=== PATIENT | male | born 1945 | race Caucasian/White ===

== ENCOUNTER 2016-09-12 13:52 | Emergency (ER) | payer OTHER ==
[~2016-09-12] VITALS: Ht 177.8 cm; Wt 128.0 kg
[2016-09-12 14:02] VITALS: TEMP 36.7; Ht 177.8 cm; Wt 128.0 kg
--- NOTE | 2016-09-12 14:38 | EMERGENCY ROOM VISIT NOTE ---
History First contact with patient: 14:05 Chief Complaint: ANXIETY Stated Complaint: HEADACHE/ANXIOUS History of Present Illness The patient is a 71 year old male who presents to the Emergency Room with complaints of anxiety causing a panic attack started this morning prior to arrival. The patient has a long-standing history of anxiety. He has been taking Xanax for several years. He is very concerned that he is now addicted to it. He reports taking 1 tablet 0.25 mg at least 3 times daily for the last several years. The patient is concerned that he is going to run out of his prescription. He has seen his primary care physician for this problem. He was also recently started on Zoloft, but has not seen any significant improvement. He does complain of insomnia and says that one 0.25 mg tablet is not enough to help him sleep. He has been taking 2 at a time at night. He does report some increased stressors as of lately including buying a house. He did experience some chest pressure that started at approximately noon today. It has dissipated. He denies any heart palpitations, dizziness or shortness of breath. He denies no known history of coronary disease. He denies feeling shaky or tremors, but he has not gone without his medication in quite some time. Review of Systems 10 system review performed and negative unless noted in HPI or below Past Medical/Surgical History Hypertension, anxiety Family History Hypertension Social History Smoking Status: Never Smoker Smokeless Tobacco Use: No Alcohol Use: none Marital Status: Housing Status: lives with significant other Occupation Status: retired Current/Historical Medications Scheduled PRN Alprazolam (Xanax), 1 TAB PO Q6H PRN for Anxiety/Agitation Physical Exam Vital Signs Date Time Temp Pulse Resp B/P (MAP) Pulse Ox O2 Delivery O2 Flow Rate FiO2 09/12/16 17:37 68 142/71 94 09/12/16 16:00 68 132/79 09/12/16 14:02 36.7 96 18 152/104 96 Room Air Physical Exam VITALS: Vitals are noted on the nurse's note and reviewed by myself. Vital signs stable. GENERAL: 71-year-old male, in no acute distress, nondiaphoretic, well-developed well-nourished. SKIN: The skin was without rashes, erythema, edema, or bruising. HEAD: Normocephalic atraumatic. MOUTH: Mucous membranes moist. NECK: Supple without nuchal rigidity. No JVD. HEART: Regular rate and rhythm without murmurs gallops or rubs. LUNGS: Clear to auscultation bilaterally without wheezes, rales or rhonchi. No accessory muscle use. ABDOMEN: Positive bowel sounds x 4.Soft, nontender, without organomegaly. No guarding or rebound tenderness. MUSCULOSKELETAL: No muscle atrophy, erythema, or edema noted. Strength 5/5 throughout. NEURO: Patient was alert and oriented to person place and time. No tremor noted. Normal sensation to touch. No focal neurological deficits. Medical Decision & Procedures ER Provider Diagnostic Interpretation: Patient Name: NICKY BELTRAN Unit Number: [id number] Dictated: 09/12/161451 Transcribed: 09/12/161451 [facility] Printed Date/Time: [~ rep prt dt]/[~ rep prt tm] [~ rep ct labl] - [~ rep ct ivnm] [facility] [place] [address] Dictated: 09/12/161451 Transcribed: 09/12/161451 [facility] Printed Date/Time: [~ rep prt dt]/[~ rep prt tm] [~ rep ct labl] - [~ rep ct ivnm] Patient: NICKY BELTRAN Address1: [address] Rec: [id number] Address2: Acct ID: [id number] [facility] Zip: [place] [address] Date: 1945 Sex: M Room/Bed: Ref Phy: Justin Polanco D.O. SC: VIPUL Att Phy: Report #: [id number] Lisa Phy: Justin Polanco D.O. Test: CXR1P Admit Phy: Global Sales Director: PARESH Interpreting Phy: Umair Carr D.O. Diagnosis: HEADACHE/ANXIOUS Ordering Phy: Khadijah No PA-C Service Date: 09/12/16 Admit Date: 09/12/16 MNE: [id number] CONF: DICTATED BY: Umair Carr D.O.]] CC: Jonah Campa M.D. Sulman,Justin A., D.O. Khadijah No PA-C Endcc: [~ rep ct add3]] CHEST ONE VIEW PORTABLE HISTORY:71 yearsMalechest pressure COMPARISON: None available. TECHNIQUE: Portable upright AP view of the chest. FINDINGS: Cardiac silhouette is within normal limits. Hazy opacities within the medial portions of the apical upper lungs are noted suggesting areas of pleural-parenchymal scarring. No definite mass identified. No pneumothorax or pleural effusion. No overt pulmonary edema. There is mild right hemidiaphragmatic elevation. Degenerative changes are seen in the bilateral shoulders. IMPRESSION: Hazy opacities involving the medial portions of the apical upper lungs are noted without comparison available. These findings may reflect underlying pleural parenchymal scarring . The above report was generated using voice recognition software. It may contain grammatical, syntax or spelling errors. Electronically signed by: Roel Carr M.D. 09/12/2016 2:55 PM Dictated Date/Time: 09/12/2016 2:52 PM The status of this report is Signed. Draft = Not yet reviewed or approved by Radiologist. Signed = Reviewed and approved by Radiologist. <AttendingPhy></AttendingPhy> <FamilyPhy>Justin Polanco D.O.</FamilyPhy> < PrimaryPhy>Justin Polanco D.O.</PrimaryPhy> <UnitNumber>[id number]</UnitNumber > <VisitNumber>[id number]</VisitNumber> <PatientName>DEVINNICKY</ PatientName> <DateOfBirth>1945</DateOfBirth> <Location>[facility]</Location> < ServiceDate>09/12/16</ServiceDate> <MNE>ESINDI</MNE> <OrderingPhy>Khadijah No PA-C</OrderingPhy> <OrderingPhyMNE>f rep ord dr barroso</OrderingPhyMNE> < DictatingPhyMNE>f rep dict dr barroso</DictatingPhyMNE> <CCListMNE>f rep ct mne</ CCListMNE> <AdmittingPhyMNE>f pt admit dr barroso</AdmittingPhyMNE> <AttendingPhyMNE >f pt attend dr barroso</AttendingPhyMNE> <ConsultingPhyMNE>f pt consult dr barroso</ConsultingPhyMNE> <FamilyPhyMNE>f pt fam dr barroso</FamilyPhyMNE> <OtherPhyMNE>f pt other dr barroso</OtherPhyMNE> < PrimaryPhyMNE>f pt prim care dr barroso</PrimaryPhyMNE> <ReferringPhyMNE>f pt referring dr barroso</ReferringPhyMNE> Laboratory Results 09/12/16 14:40 Red Blood Count 5.00, Mean Corpuscular Volume 91.4, Mean Corpuscular Hemoglobin 32.2, Mean Corpuscular Hemoglobin Concent 35.2, Mean Platelet Volume 9.7, Neutrophils (%) (Auto) 70.0, Lymphocytes (%) (Auto) 19.2, Monocytes (%) (Auto) 9.2, Eosinophils (%) (Auto) 1.0, Basophils (%) (Auto) 0.3, Neutrophils # (Auto) 4.42, Lymphocytes # (Auto) 1.21, Monocytes # (Auto) 0.58, Eosinophils # (Auto) 0.06, Basophils # (Auto) 0.02 09/12/16 14:40 Test 09/12/16 14:00 09/12/16 14:40 Urine Color YELLOW Urine Appearance CLEAR (CLEAR) Urine pH 7.0 (4.5-7.5) Urine Specific [place] 1.011 (1.000-1.030) Urine Protein NEG (NEG) Urine Glucose (UA) NEG (NEG) Urine Ketones NEG (NEG) Urine Occult Blood NEG (NEG) Urine Nitrite NEG (NEG) Urine Bilirubin NEG (NEG) Urine Urobilinogen NEG (NEG) Urine Leukocyte Esterase NEG (NEG) White Blood Count 6.31 K/uL (4.8-10.8) Red Blood Count 5.00 M/uL (4.7-6.1) Hemoglobin 16.1 g/dL (14.0-18.0) Hematocrit 45.7 % (42-52) Mean Corpuscular Volume 91.4 fL (80-100) Mean Corpuscular Hemoglobin 32.2 pg (25-34) Mean Corpuscular Hemoglobin Concent 35.2 g/dl (32-36) Platelet Count 200 K/uL (130-400) Mean Platelet Volume 9.7 fL (7.4-10.4) Neutrophils (%) (Auto) 70.0 % Lymphocytes (%) (Auto) 19.2 % Monocytes (%) (Auto) 9.2 % Eosinophils (%) (Auto) 1.0 % Basophils (%) (Auto) 0.3 % Neutrophils # (Auto) 4.42 K/uL (1.4-6.5) Lymphocytes # (Auto) 1.21 K/uL (1.2-3.4) Monocytes # (Auto) 0.58 K/uL (0.11-0.59) Eosinophils # (Auto) 0.06 K/uL (0-0.5) Basophils # (Auto) 0.02 K/uL (0-0.2) RDW Standard Deviation 47.7 fL (36.4-46.3) RDW Coefficient of Variation 14.1 % (11.5-14.5) Immature Granulocyte % (Auto) 0.3 % Immature Granulocyte # (Auto) 0.02 K/uL (0.00-0.02) Prothrombin Time 28.1 SECONDS (9.0-12.0) Prothromb Time International Ratio 2.5 (0.9-1.1) Anion Gap 9.0 mmol/L (3-11) Est Creatinine Clear Calc Drug Dose 104.6 ml/min Estimated GFR () 100.6 Estimated GFR (Non- 86.8 BUN/Creatinine Ratio 15.6 (10-20) Calcium Level 9.3 mg/dl (8.5-10.1) Troponin I < 0.015 ng/ml (0-0.045) ECG Indication: chest pain Rate (beats per minute): 55 Rhythm: sinus bradycardia ED Course Patient was seen and examined Vital signs including blood pressure were reviewed. This was discussed with the patient. He admits to not taking his blood pressure medication regularly. medications list was verified with patient Labs were obtained, and a saline lock was established Imaging and an EKG were performed and reviewed Upon evaluation, the patient was resting comfortably. We discussed the results of his workup. He voiced understanding. The patient was given a follow-up appointment with his primary care physician on September 14. He was comfortable being discharged home. I reviewed discharge instructions the patient. They voiced understanding and had no further questions. Medical Decision Differential diagnosis: Anxiety, panic attack, acute coronary syndrome, pulmonary embolus, musculoskeletal pain,, withdrawal from benzodiazepines This patient is a pleasant 71-year-old male presents to the emergency department with complaints of a panic attack and anxiety. He is concerned that he is addicted to Xanax. He has been on the medication for several years. He seems to be taking anywhere from 0.5 mg to 2.5 mg daily throughout the day. He did not have any symptoms of withdrawal on exam besides an elevated blood pressure. The patient admits to not taking his blood pressure medication as prescribed. He was concerned about running out of his prescription of Xanax. I do not want the patient to go through withdrawal; therefore, the patient was given a prescription for Xanax. I stressed the importance of close follow-up with his primary care physician who will need to closely manage the patient as he slowly decreases his dose of Xanax daily. I did elect to perform a cardiac workup as he was complaining of chest pressure this morning. The pressure dissipated on its own. His EKG did not have any ST elevations or depressions. His troponin was negative. He did have some hazy opacities in the upper lung méndez. Given how this has been asymptomatic (no cough of fever), the patient is stable for follow-up in 2 days with his PCP. Impression Primary Impression: Acute anxiety Departure Information Prescriptions Alprazolam (Xanax) 0.5 Mg Tab 1 TAB PO Q6H Y for Anxiety/Agitation, #14 TAB Prov: Khadijah No PA-C 09/12/16 Patient Instructions My [facility]
--- NOTE | 2016-09-12 14:56 | DIAGNOSTIC IMAGING REPORT ---
CHEST ONE VIEW PORTABLE HISTORY:71 yearsMalechest pressure COMPARISON: None available. TECHNIQUE: Portable upright AP view of the chest. FINDINGS: Cardiac silhouette is within normal limits. Hazy opacities within the medial portions of the apical upper lungs are noted suggesting areas of pleural-parenchymal scarring. No definite mass identified. No pneumothorax or pleural effusion. No overt pulmonary edema. There is mild right hemidiaphragmatic elevation. Degenerative changes are seen in the bilateral shoulders. IMPRESSION: Hazy opacities involving the medial portions of the apical upper lungs are noted without comparison available. These findings may reflect underlying pleural parenchymal scarring . The above report was generated using voice recognition software. It may contain grammatical, syntax or spelling errors. Electronically signed by: Roel Carr M.D. 09/12/2016 2:55 PM Dictated Date/Time: 09/12/2016 2:52 PM
[2016-09-12 15:04] LABS: BASO % 0.3 %; BASO ABS # 0.02 K/uL (0-0.2); COMPLETE YES; HEMATOCRIT 45.7 % (42-52); IG% 0.3 %; LYMPH % 19.2 %; LYMPH ABS # 1.21 K/uL (1.2-3.4); MEAN CELL VOLUME 91.4 fL (80-100); MEAN CORPUSCULAR HEMOGLOBIN 32.2 pg (25-34); MEAN CORPUSCULAR HGB CONC 35.2 g/dl (32-36); MEAN PLATELET VOLUME 9.7 fL (7.4-10.4); MONO % 9.2 %; PLATELET COUNT 200 K/uL (130-400); WHITE BLOOD COUNT 6.31 K/uL (4.8-10.8)
[2016-09-12 15:20] LABS: INR 2.5 (0.9-1.1); PROTHROMBIN TIME (PATIENT) 28.1 SECONDS (9.0-12.0)
[2016-09-12 15:23] LABS: BLOOD UREA NITROGEN 14 mg/dl (7-18); BUN/CREATININE RATIO 15.6 (10-20); CALCIUM 9.3 mg/dl (8.5-10.1); CARBON DIOXIDE 26 mmol/L (21-32); CHLORIDE 106 mmol/L (98-107); CREATININE 0.87 mg/dl (0.60-1.40); GLUCOSE 93 mg/dl (70-99); POTASSIUM 3.7 mmol/L (3.5-5.1); SODIUM 141 mmol/L (136-145)
--- NOTE | 2016-09-12 15:55 | EMERGENCY ROOM VISIT NOTE ---
ED Visit Note First contact with patient: 14:05 Patient was seen by our PA/NUCLEAR PHYSICIAN. I was involved in the patient's care and did evaluate the patient myself. I was involved in the care throughout the ER stay. The patient presents with what sounds like anxiety. Cardiac workup is unrevealing. He is doing well. He is being discharged to follow with his doctors office and to use his anxiety meds as needed.
[2016-09-12] MEDS ORDERED: ALPR-411 PO (16:03)
[2016-09-12 16:35] LABS: URINE APPEARANCE CLEAR (CLEAR); URINE BILIRUBIN NEG (NEG); URINE COLOR YELLOW; URINE NITRITE NEG (NEG); URINE SPECIFIC GRAVITY 1.011 (1.000-1.030); UROBILINOGEN NEG (NEG)
[2016-09-12 16:38] LABS: MANUAL MICROSCOPIC REQUIRED? NO; REVIEW REQ? NO
[2016-09-12 17:37] VITALS: BP 142/71; PULSE 68; O2SAT 94
== END 2016-09-12 17:15 | disposition home or self-care (01) ==
LOC: C.EDC 13:57
DX: F41.9 Anxiety disorder, unspecified (principal); I10 Essential (primary) hypertension; R91.8 Other nonspecific abnormal finding of lung field; Z82.49 Family history of ischemic heart disease and other diseases of the circulatory system

== ENCOUNTER 2016-11-06 14:11 | Emergency (ER) | payer OTHER ==
[~2016-11-06] VITALS: Ht 177.8 cm; Wt 126.7 kg
[~2016-11-06 14:11] MED LIST: ALPR-411 PO
[2016-11-06 14:20] VITALS: TEMP 36.5; Ht 177.8 cm; Wt 126.7 kg
--- NOTE | 2016-11-06 15:03 | EMERGENCY ROOM VISIT NOTE ---
History Report prepared by Elisabet: Harrison Woo Under the Supervision of: Dr. Rita Rothman M.D. First contact with patient: 14:19 Chief Complaint: ANXIETY Stated Complaint: PANIC ATTACK History of Present Illness The patient is a 71 year old male who presents to the Emergency Room for a mental health evaluation. He has been having intermittent anxiety attacks since 4 days ago. He is currently on Coumadin, Zoloft 50 mg PO, and Xanax 0.25 mg PRN. His symptoms began with him being unable to sleep, so he took 0.25 mg of Xanax, which he is worried about taking because he "feels like a criminal" when he takes it. The next day, he chipped his tooth, but he could not get an appointment with his dentist for the weekend because of the holiday. He then began to worry about his tooth and being on blood thinners. He also was supposed to go on a vacation, which he cancelled because of this and his worrying. He presents today because he thought he was going to have another anxiety attack. He currently has a therapist and is trying to get an appointment with a psychiatrist. He denies any SI. He also did not take an increased dose of any of his medications. However, he does not take his water pill because it keeps him up all night. He notes that he has a head cold with some rhinorrhea and congestion. He has a past medical history of blood clots. Source of History: patient Onset: 4 days ago Position: other (Mental Health) Symptom Intensity: moderate Quality: other (Anxiety) Timing: intermittent Note: He has rhinorrhea and sinus congestion. He denies any SI or HI. Review of Systems See HPI for pertinent positives & negatives. A total of 10 systems reviewed and were otherwise negative. Past Medical & Surgical Medical Problems: (1) Anxiety (2) History of blood clots (3) HTN (hypertension) Family History Omitted secondary to the patient's age. Social History Smoking Status: Never Smoker Smokeless Tobacco Use: No Alcohol Use: none Drug Use: none Marital Status: Housing Status: lives with significant other Occupation Status: retired Current/Historical Medications Scheduled Multiple Vitamin (Multivitamin), 1 TAB PO DAILY Sertraline (Zoloft), 1 TAB PO DAILY Sertraline Hcl (Zoloft), 75 MG PO DAILY Trazodone Hcl (Trazodone), 50 MG PO DAILY Warfarin Sodium (Coumadin), 1 TAB PO DAILY Warfarin Sodium (Coumadin), 1 TAB PO DAILY Scheduled PRN Alprazolam (Xanax), 1 TAB PO DAILY PRN for Anxiety Chlorthalidone (Chlorthalidone), 25 MG PO DAILY PRN for SWELLING Allergies Coded Allergies: Middleton's Yeast (Unverified Allergy, Severe, HIVES, 11/06/16) [place] (Unverified Allergy, Intermediate, HIVES, 11/06/16) Physical Exam Vital Signs Date Time Temp Pulse Resp B/P (MAP) Pulse Ox O2 Delivery O2 Flow Rate FiO2 11/06/16 15:44 57 16 160/92 95 11/06/16 14:20 36.5 62 20 157/100 96 Room Air Physical Exam Vital signs reviewed. General: Well-appearing obese male, in no significant distress. HEENT: No scleral icterus, PERRLA, neck supple. Atraumatic. Cardiovascular: Regular rate and rhythm, no extra sounds. Pulmonary: Clear to auscultation bilaterally, normal work of breathing. Abdomen: Soft, nontender, nondistended, positive bowel sounds. Musculoskeletal: Atraumatic, no peripheral edema. Neurologic: Patient awake alert and oriented x 3, full strength in all 4 extremities. Cranial nerves 2 through 12 grossly intact. Skin: Warm, dry, no rash Psych: Negative SI and HI. Medical Decision & Procedures ED Course 1419: Past medical records reviewed. The patient was evaluated in room A5. A complete history and physical examination was performed. 1538: Upon reevaluation, the patient appeared to have improvement of his symptoms. I discussed findings with him. He verbalized agreement of the treatment plan. He was discharged home. Medical Decision Differential diagnosis: Etiologies such as mood disorder, infection, hypoglycemia, electrolyte abnormalities, cardiac sources, intracerebral event, toxicologic, neurologic, as well as others were entertained. This patient was evaluated and appeared to be in no significant distress. Patient is currently taking 50 mg of Zoloft daily, he has been on this for quite some time. The patient has been taking Xanax in fragmented doses. He seems to have a significant anxiety disorder. He denies any suicidal or homicidal ideation. The patient was advised to increase his Zoloft to 75 mg daily until he is reevaluated by his primary care physician this week. Case management has evaluated the patient and will assist with follow-up psychiatric care. Patient was advised to use his Xanax appropriately, 0.5 mg sparingly as needed for anxiety/panic. He will follow-up with his physician this week and return to the ER for worsening of symptoms or any medical concerns. Medication Reconcilliation Current Medication List: was personally reviewed by me Blood Pressure Screening Patient's blood pressure: Elevated blood pressure Blood pressure disposition: Referred to PCP (Medication non-compliance) Impression Primary Impression: Acute anxiety Scribe Attestation The scribe's documentation has been prepared under my direction and personally reviewed by me in its entirety. I confirm that the note above accurately reflects all work, treatment, procedures, and medical decision making performed by me. Departure Information Dispostion Home / Self-Care Prescriptions Sertraline Hcl (ZOLOFT) 25 Mg Tab 75 MG PO DAILY, #30 TAB Prov: Rita Rothman M.D. 11/06/16 Referrals Justin Polanco D.OFuentes (PCP) Forms HOME CARE DOCUMENTATION FORM, IMPORTANT VISIT INFORMATION Patient Instructions My [facility] Additional Instructions Diagnosis: Anxiety Zoloft 75 mg (one 25 mg + one 50 mg tab) daily until you are reevaluated by your PCP. Seek further recommendations at that time. Xanax 0.5 mg every 8 hours as needed for anxiety Follow up with your doctor this week for reevaluation. Return to the ED for worsening of symptoms or any medical concerns.
[2016-11-06] MEDS ORDERED: MULTTAB58 PO (15:21)
[2016-11-06] MEDS ORDERED: ALPR0.25 PO (15:21)
[2016-11-06] MEDS ORDERED: WARF5TAB90 PO (15:21)
[2016-11-06] MEDS ORDERED: WARF1TAB PO (15:21)
[2016-11-06] MEDS ORDERED: TRAZ50TA35 PO (15:21)
[2016-11-06] MEDS ORDERED: SERT50TA PO (15:21)
[2016-11-06] MEDS ORDERED: HYG25 PO (15:25)
[2016-11-06] MEDS ORDERED: SERT1TAB72 PO (15:33)
[2016-11-06 15:44] VITALS: BP 160/92; PULSE 57; O2SAT 95
== END 2016-11-06 15:37 | disposition home or self-care (01) ==
LOC: EDBD 14:11 → C.EDA 14:12
DX: F41.9 Anxiety disorder, unspecified (principal); I10 Essential (primary) hypertension; Z86.718 Personal history of other venous thrombosis and embolism; Z79.01 Long term (current) use of anticoagulants; Z79.899 Other long term (current) drug therapy

== ENCOUNTER 2024-07-08 06:45 | Observation (INO) ==
--- NOTE | 2024-06-16 14:36 | PAT Medication Instructions ---
Medication Instructions Date of Service June 16, 2024 Home Medications acetaminophen 500 mg capsule 1,000 mg PO Q6H PRN atorvastatin 20 mg tablet (Lipitor) 20 mg PO QAM calcium carbonate 600 mg PO QAM cholecalciferol (vitamin D3) 25 mcg (1,000 unit) tablet (Vitamin D3) 25 mcg PO DAILY multivitamin 1 tab PO QAM propranolol 20 mg tablet 20 mg PO BID quetiapine 25 mg tablet (Seroquel) 25 mg PO HS warfarin 5 mg tablet 5 mg PO HS ASK your prescriber and surgeon warfarin 5 mg tablet 5 mg PO HS DO NOT take the morning of surgery calcium carbonate 600 mg PO QAM cholecalciferol (vitamin D3) 25 mcg (1,000 unit) tablet (Vitamin D3) 25 mcg PO DAILY multivitamin 1 tab PO QAM Take morning of surgery With a small sip of water, OTHERWISE NOTHING TO EAT OR DRINK AFTER MIDNIGHT: acetaminophen 500 mg capsule 1,000 mg PO Q6H PRN(if needed) atorvastatin 20 mg tablet (Lipitor) 20 mg PO QAM propranolol 20 mg tablet 20 mg PO BID Take evening before surgery acetaminophen 500 mg capsule 1,000 mg PO Q6H PRN(if needed) propranolol 20 mg tablet 20 mg PO BID quetiapine 25 mg tablet (Seroquel) 25 mg PO HS Other Notes If you have any questions please call us at [phone] or [phone] or [phone] or [phone]
--- NOTE | 2024-06-23 10:32 | Anesthesiology Consultation ---
Date of Service June 23, 2024 Assessment & Plan (1) Encounter for pre-operative examination: Plan - will send optimization form to [facility] cardiology given PCP notation on cardiac clearance prior to surgery. Coags and optimization to also be faxed to [facility] PCP. - check coags STAT am DOS. - PCP office note 06/10/24 [facility]: "...follow-up on blood pressure management...previously on Crestor but experienced stomach pain and weakness, leading to a switch to Lipitor. He is currently taking Lipitor daily and tolerating it well...Preoperative evaluations include cardiac clearance and potential EKG, urine specimen, blood work, and chest x-ray..." - cardiology office visit 05/02/24 [facility]: "...hypertension. Hyperlipidemia. Chronic NOBLES nonischemic WILLIAM 01/2021. History of DVT x 2, on chronic Coumadin therapy + Factor V Leiden...feeling well...switch to atorvastatin...follow up 1 year..." - warfarin/Coumadin: patient states has already received and is not being bridged, therefore no requirements from anesthesia standpoint for neuraxial anesthesia. - Outpatient joint assessment: Patient is currently scheduled for inpatient pathway. If re-evaluated and patient/surgeon requests outpatient pathway, patient is not an acceptable candidate for outpatient joint program. Chart Review Chart Review: Pending: Refer to Additional Notes / Consult section and Patient seen in Pre Admission Testing Teaching & Discussion Pre-Anesthesia Teaching/Discussion Notes: Instructed NPO after midnight before surgery, except medications with 15 cc of water. Medication instructions provided according to the PAT guidelines. History Surgery Operation Date: 07/08/24 08:50 Proposed Procedures p Left Total Hip Arthroplasty - Jovany Acosta MD Height/Weight Height: 5 ft 10 in Weight: 124.8 kg Allergies Allergy/AdvReac Type Severity Reaction Status Date / Time rosuvastatin [From Crestor] Allergy Intermediate Stomach Verified 06/17/24 08:59 pain strawberry Allergy Intermediate Hives Unverified 06/17/24 08:59 Yeast Allergy Intermediate Hives Unverified 06/17/24 08:59 Medications Home Medications Medication Instructions Recorded Confirmed Last Taken acetaminophen 500 mg capsule 1,000 mg PO Q6H PRN Pain 06/11/24 06/11/24 Unknown atorvastatin 20 mg tablet (Lipitor) 20 mg PO QAM 06/11/24 06/11/24 Unknown calcium carbonate 600 mg PO [facility] 06/11/24 06/11/24 Unknown cholecalciferol (vitamin D3) 25 25 mcg PO DAILY 06/11/24 06/11/24 Unknown mcg (1,000 unit) tablet (Vitamin D3) multivitamin 1 tab PO [facility] 06/11/24 06/11/24 Unknown propranolol 20 mg tablet 20 mg PO BID 06/11/24 06/11/24 Unknown quetiapine 25 mg tablet (Seroquel) 25 mg PO HS 06/11/24 06/11/24 Unknown warfarin 5 mg tablet 5 mg PO HS 06/11/24 06/11/24 Unknown Past Medical History Medical History (Updated 06/23/24 @ 11:08 by Stormy Syed PA-C) Anxiety Difficult intravenous access Environmental allergies Factor V deficiency Factor 5 Leiden mutation per [facility] records Hx of deep venous thrombosis two in RLE 20+ years ago s/p surgery > reason for coumadin Hx of gastroesophageal reflux (GERD) controlled, stable per pt Hyperlipidemia Hypertension controlled, stable per pt Nonalcoholic fatty liver Per [facility] records Sleep apnea Does not use device Patient denies h/o stroke, seizures, heart attack, heart failure, DM, or blood transfusions. Exercise / Class Metabolic Activity III < 4 Walking/Shop/Light housework (denies chest discomfort or shortness of breath with usual activities, does not have a flight of stairs in home) Past Family History Family History Other No family history of adverse response to anesthesia Past Surgical History Surgical History (Updated 06/23/24 @ 11:10 by Stormy Syed PA-C) History of colonoscopy History of esophagogastroduodenoscopy (EGD) History of right hip replacement History of tooth extraction Testicular mass Removed growth only ("benign) Past Anesthesia History No Hx of Anesthesia Complications and No Family Hx of Anesthesia Complications History of PONV No Hx of PONV and Hx of Motion Sickness Social History Smoking Status: Never smoker Do You Dip or Chew Tobacco: No Hx Alcohol Use: Yes Alcohol type: beer alcohol intake frequency: a few times a month substance use type: does not use Review of Systems Patient denies chest pain, shortness of breath, dyspnea on exertion, fever, chills, cough, wheezing, or palpitations. Physical Exam Vital Signs Vitals BP 105/67 P 56 TEMP 97.8 SP02 94% on RA RESP 17 Physical Patient resting comfortably in chair in no acute distress, alert and oriented, responding appropriately throughout visit Full cervical extension range of motion without pain TMD 3.5 finger breadths Mallampati Score 2 Dentition: cap front upper tooth, denies chipped or loose teeth, crowns, implants or bridges Lungs: normal respiratory effort. Good air movement, clear throughout to auscultation, no adventitious breath sounds Cardiac: regular rate and rhythm, no murmurs noted Carotid arteries: negative bruit bilat Lab Results Anesthesia Preop Results Results Anesthesia Widget: WBC 8.98 K/ul (4.8-10.8) 06/23/24 Hgb 14.8 g/dl (14.0-18.0) 06/23/24 Hct 43.9 % (42.0-52.0) 06/23/24 Plt 193 K/uL (130-400) 06/23/24 Na 141 mmol/L (136-145) 06/23/24 K 4.1 mmol/L (3.5-5.1) 06/23/24 Cl 106 mmol/L (98-107) 06/23/24 CO2 29 mmol/L (21-32) 06/23/24 BUN 18 mg/dl (6-23) 06/23/24 Creat 0.82 mg/dl (0.6-1.4) 06/23/24 Glucose Level 123 mg/dl (70-99(Fasting)) H 06/23/24 PT 25.6 Seconds (9.0-12.0) H 06/23/24 PTT 37 Seconds (21-31) H 06/23/24 INR 2.6 (0.9-1.1) H 06/23/24 Blood Type A Positive 06/23/24 Antibody Screen NEGATIVE 06/23/24 Testing Electrocardiogram Date: 05/02/24 NSR, rate 66 bpm Chest X-Ray Date: 06/23/24 No acute cardiopulmonary findings. Stress Test Date: 01/21/21 MPHR 83% Negative for inducible ischemia Mild aortic valve sclerosis without aortic stenosis EF 55-59% Mild cLVH Grade I diastolic dysfunction
[~2024-07-08 06:45] MED LIST changes: -ALPR-411 PO; +BUPIVACAINE 0.5 % 5 MG/1 ML PF 10ML VIAL ONE
[2024-07-08] MEDS ORDERED: PROPOFOL IV EMULSION 10 MG/ML 20 ML VIAL IV ONE (07:26)
[2024-07-08] MEDS ORDERED: LIDOCAINE 2% 2 ML VIAL/AMP(20MG/ML) INFIL ONE (07:26)
[2024-07-08] MEDS: LR 500ML BOLUS, THEN 15ML/HR IV SCH (07:35)
[2024-07-08 07:40] LABS: INR 1.3 (0.9-1.1); Partial Thromboplastin Time 28 Seconds (21-31); Prothrombin Time 13.5 Seconds (9.0-12.0)
[2024-07-08] MEDS: METOCLOPRAMIDE HCL 10 MG TABLET PO SCH (07:41)
[2024-07-08] MEDS: LR 60ML/HR IV SCH (07:41)
[2024-07-08] MEDS: ACETAMINOPHEN 500 MG TAB PO SCH ×2 (07:41→14:31)
[2024-07-08] MEDS: CeleBREX 200 MG CAP PO SCH (07:41)
[2024-07-08] MEDS: dexAMETHasone**PF** 10 MG/ML VIAL IV SCH (07:42)
[2024-07-08] MEDS: FAMOTIDINE 20 MG TAB PO SCH (07:42)
--- OUTSIDE RECORDS SUMMARY | 2024-07-08 07:45 | External Medical Summary | Summary of Care ---
Author Name Unknown Organization [facility] Address [address] [place] [address] Phone [phone] Care Team Providers Care Rn Appeals Name Role Phone Rachelle Mo PA-C Primary Care Provider [phone] Encounter Details Date Type Department Care Team (Late st Contact Info) Description 07/07/2024 Orders Only Family Practice [facility] [address] [place] [place] [address] Rachelle Mo PA-C [address] [facility] [place] [address] Allergies Active Allergy Reactions Criticality Noted Date Comments [place] Extract Hives 12/14/2015 documented as of this encounter (statuses as of 07/07/2024) Medications Multiple Vitamins-Minera ls (CENTRUM SILVER ADULT 50+) Tablet Take 1 Tablet by mouth in the morning. Active acetaminophen (TYLENOL) 325 MG Tablet Take 2 Tablets by mouth every 6 hours as needed for Pain or Fever. 100 Tab 0 6 Active Cholecalciferol (VITAMIN D3) 1000 units CAPS Take by mouth. 8 Active Triamcinolone Acetonide 0.1 % External Ointment (Aristocort)Ind ications:Dermat itis Apply topically to affected area 2 times a day as needed for Itching. Skin irritation above the right ear 60 g 5 4 Active QUEtiapine Fumarate 25 MG Oral Tablet (SEROquel) Take 1 Tablet by mouth at bedtime. 90 Tablet 3 4 Active Warfarin Sodium 5 MG Oral Tablet (Jantoven)Indic ations:Chronic deep vein thrombosis (DVT) of distal vein of right lower extremity (HCC) TAKE 1 TABLET BY MOUTH ONCE DAILY OR DIRECTED 90 Tablet 3 4 Active Atorvastatin Calcium 20 MG Oral Tablet (Lipitor) Take 1 Tablet by mouth in the morning. 90 Tablet 3 5 Active Propranolol HCl 20 MG Oral Tablet (Inderal)Indica tions:HTN, goal below 150/90 TAKE 1 TABLET BY MOUTH TWICE DAILY 180 Tablet 1 5 Active Calcium Carb-Cholecalci ferol 600-20 MG-MCG Oral Tablet (Caltrate 600+D3) Take by mouth. 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 05/15/2022 Heterozygous factor V Leiden mutation 02/12/2019 Major depressive disorder, single episode, moder ate 01/03/2018 NAFLD (nonalcoholic fatty liver disease) 017 YOHANNES (generalized anxiety disorder) 12/06/2016 History of DVT (deep vein thrombosis) 09/06/2016 HTN, goal below 150/90 03/23/2015 Obstructive sleep apnea of adult 03/23/2015 Primary osteoarthritis of left hip 01/08/2015 Hip joint replacement status 11/12/2014 documented as of this encounter (statuses as of 07/07/2024) Resolved Problems Problem Noted Date Diagnosed Date Resolved Date Morbid obesity due to excess calories 11/08/2021 06/10/2024 Morbid obesity with BMI of 45.0-49.9, adult 07/05/2018 11/08/2021 Body mass index (BMI) of 40. 0 to 44.9 in adult 07/24/2017 07/05/2018 Overview: Per Obesity protocol #1 DVT (deep venous thrombosis) 01/08/2015 12/18/2016 Hip pain 11/12/2014 12/06/2016 documented as of this encounter (statuses as of 07/07/2024) Immunizations Name Administration Dates Next Due COVID-19 mRNA, LNP-s, No Pre serve, 2-Dose Series (Moderna) 05/06/2020,04/10/2020 COVID-19 mRNA, LNP-s, No Pre serve, 2-Dose Series (Pfizer) 01/24/2021 Pneumococcal Conjugate Vacc, 13 Valent (Prevnar) 12/14/2015 Pneumococcal Polysaccharide PPV23 (Pneumovax) 07/17/2012 Seasonal Influenza, High Dos e, Trivalent, PF, IM (Fluzone HD) 12/11/2023 Seasonal Influenza, PF, 6 M & above, IM , (FluLaval or Fluzone) 12/02/2019,01/03/2018,12/06/2016 Seasonal Influenza, Quadriva lent Hd (Fluzone Hd) 11/20/2022,11/08/2021,12/08/2020 Seasonal Influenza, Quadriva lent, No Preserve, IM 12/14/2015 Seasonal Influenza, Trivalen t, Adjuvanted, 65+ YRS, PF, (Fluad) 01/09/2019 TDAP, Age 7 and older, IM (Adacel) 12/11/2023, Zoster Vaccine Recombinant (Shingrix) 02/04/2021 ,10/30/2020 documented as of this encounter Social History Tobacco Use Types Packs/Day Years Used Date Smoking Tobacco: Never Smokeless Tobacco: Never Alcohol Use Standard Drinks/Week Comments Yes 0 (1 standard drink = 0.6 oz pur e alcohol) a beer once a week PHQ-2 Answer Date Recorded PHQ Adult Total Score 0 06/10/2024 Hunger Vital Sign Answer Date Recorded Within the past 12 months, y ou worried that your food would run out before you got the money to buy more. Never true 05/16/19 23 Within the past 12 months, t he food you bought just didn't last and you didn't have money to get more. Never true 05/15/2022 Sex and Gender Information Value Date Recorded Sex Assigned at Male 07/05/2018 11:16 AM EDT Legal Sex Male 5:09 AM EST Gender Identity Male 07/05/2018 11:16 AM EDT Sexual Orientation Straight 07/05/2018 11 :16 AM EDT documented as of this encounter Plan of Treatment Upcoming Encounters Date Type Department Care Team (Late st Contact Info) Description 07/14/2024 6:00 PM EDT Anticoagulation Pharmacy, [facility] [address] [place] [address] Pharmacist1, [facility] [address] [place] [address] 08/05/2024 11:00 AM EDT Laboratory Laboratory [facility] [place] [address] [place] [phone] [place], Lab [facility] [address] [facility] [place] [address] 08/12/2024 2:00 PM EDT Office Visit Hematology/Oncology [facility] [place] [address] [place] [phone] Kalin Demarco MD [address] [facility] [place] [address] 12/16/2024 3:00 PM EDT Office Visit Family Practice [facility] [place] [address] [place] [address] Rachelle Mo PA-C [address] [facility] [place] [address] 04/03/2025 3:00 PM EST Office Visit Cardiology, [facility] [address] [place] [phone] Dafne Navarro PA-C [address] [place] [address] Health Maintenance Due Date Last Done Comments Albumin/Creatinine Ratio 08/01/1963 Adult Wellness Visit 08/01/2011 COVID-19 Vaccine ( season) 2023 01/24/2021, 05/06/2020, 04/10/2020 Depression Monitoring 06/10/2025 06/10/2024 GFR 06/23/2025 06/23/2024, 12/0 04/2023, 08/07/2023, Additional history exists DTap/Tdap Vaccines (3 - Td or Tdap) 12/10/2033 12/11/2023, 08/28/2012 Pneumococcal Vaccine: 50+ Years Completed 12/14/2015, 07/17/2012 Zoster Vaccines Completed 02/04/2021, 10/30/2020 Influenza Vaccine (FLU shot) Completed 10/2023, 11/20/2022, 11/08/2021, Additional history exists HPV (Gardasil) Vaccine Aged Out No lo nger eligible based on patient's age to complete this topic Hepatitis B Vaccine Aged Out No longe r eligible based on patient's age to complete this topic MENINGOCOCCAL (MENACTRA/MENVEO) Aged Out No longer eligible based on patient's age to complete this topic Meningitis B Vaccine (Bexsero/Trumemba) Aged Out No longer eligible based on patient's age to complete this topic documented as of this encounter Medical Devices Not on filedocumented as of this encounter Procedures Procedure Name Priority Date/Time Associated Diagnosis Comments XR CHEST 2 VIEWS Routine 06/23/2024 documented in this encounter Results * XR CHEST 2 VIEWS (06/23/2024) Anatomical Region Laterality Modality Chest Other 06/23/2024 Jovany Acosta MD RADIOLOGY (RAD GENERAL) Final Result documented in this encounter Advance Directives Documents on File Type Date Recorded Patient Business Office Manager Expl anation Power of Drug Abuse Treatment Specialist 05/28/2024 signed on 01/03/2022 Care Teams Rn Appeals Relationship Specialty Start Date End Date Chely June ZACKARY Snyder [address] [place] [address] PCP - General Physician Forestry Engineer 07/17/23 documented as of this encounter
--- OUTSIDE RECORDS SUMMARY | 2024-07-08 07:45 | External Medical Summary | Summary of Care ---
Author Name Unknown Organization [facility] Address [address] [place] [address] Phone [phone] Care Team Providers Care Drive In Teller Name Role Phone Catherinepetar June ZACKARY Primary Care Provider [phone] Reason for Visit * Reason Onset Date Comments Test Results 07/02/2024 Encounter Details Date Type Department Care Team (Late st Contact Info) Description 07/02/2024 Telephone Cardiology, [facility] [address] [place] [phone] Dfane Navarro PA-C [address] [facility] [place] [address] Test Results Allergies Active Allergy Reactions Criticality Noted Date Comments Center Extract Hives 12/14/2015 documented as of this encounter (statuses as of 07/02/2024) Medications Multiple Vitamins-Minera ls (CENTRUM SILVER ADULT [...] as of this encounter (statuses as of 07/02/2024) Active Problems Problem Noted Date Diagnosed Date [...] as of this encounter (statuses as of 07/02/2024) Resolved Problems Problem Noted Date Diagnosed Date Resolved Date Morbid obesity due to excess calories 11/08/2021 06/10/2024 Morbid obesity with BMI of 45.0-49.9, adult 07/05/2018 11/08/2021 Body mass index (BMI) of 40. 0 to 44.9 in adult 07/24/2017 07/05/2018 Overview: Per Obesity protocol #1 DVT (deep venous thrombosis) 01/08/2015 12/18/2016 Hip pain 11/12/2014 12/06/2016 documented as of this encounter (statuses as of 07/02/2024) Immunizations Name Administration Dates Next Due COVID-19 [...] AM EDT documented as of this encounter Miscellaneous Notes * Telephone Encounter - Jasmin Padro LPN - 07/02/2024 2:05 PM EDT Called spoke with patient Gave information in this encounter. Faxed per request. * Telephone Encounter - Jasmin Pardo LPN - 07/02/2024 2:04 PM EDT ----- Message from Dafne Navarro sent at 07/02/2024 1:53 PM EDT ----- Dobutamine stress echo negative for ischemia. He is low risk for perioperative cardiac events. No further cardiac testing indicated preop. Pleasefax report to [facility]. documented in this encounter Plan of Treatment Upcoming Encounters Date Type Department Care Team (Late st Contact Info) Description 07/14/2024 6:00 PM EDT Anticoagulation Pharmacy, [facility] [place] [address] [place] [address] Pharmacist1, [facility] [address] [place] [address] 08/05/2024 11:00 AM EDT [facility] [place] [address] [place] [phone] Alexi Bryson [facility] [address] [place] [address] 08/12/2024 2:00 PM EDT Office Visit Hematology/Oncology [facility] [place] [address] [place] [phone] Kalin Demarco MD [address] [place] [address] 12/16/2024 3:00 PM EDT Office Visit Family Practice [facility] [place] [address] [place] [address] Rachelle Mo PA-C [address] [place] [address] 04/03/2025 3:00 PM EST Office Visit Cardiology, [facility] [address] [place] [phone] Dafne Navarro PA-C [address] [place] [address] Health Maintenance Due Date Last Done Comments [...] Not on filedocumented as of this encounter Advance Directives Documents on File Type Date Recorded Patient Automatic Washer Mechanic Expl anation Power of Alley Cleaner 05/28/2024 signed on 01/03/[address] In Teller Relationship Specialty Start Date End Date Chely June Claudio, ZACKARY [address] [place] [address] PCP - General Physician Plugman 07/17/23 documented as of this encounter
--- OUTSIDE RECORDS SUMMARY | 2024-07-08 07:45 | External Medical Summary | Summary of Care ---
Author Name Unknown Organization [facility] Address [address] [place] [address] Phone [phone] Care Team Providers Care Grain Shipper Name Role Phone Catherinepetar June ZACKARY Primary Care Provider [phone] Reason for Visit * Reason Comments eRx-Medication Refill Encounter Details Date Type Department Care Team (Late st Contact Info) Description 07/01/2024 Refill Cardiology, [facility] [address] [place] [phone] Katerine Meza CRNP [address] [place] [address] Hyperlipemia, mixed Allergies Active Allergy Reactions Criticality Noted Date Comments [place] Extract Hives 12/14/2015 documented as of this [...] encounter Miscellaneous Notes * Telephone Encounter - Sangeeta Marinelli, [facility] - 07/02/2024 2:55 PM EDTRefused Prescriptions: Disp Refills Rosuvastatin Calcium 10 MG Oral Tablet (Cr*90 Tab*0 Sig: Take 1Tablet by mouth in the morningRefused By: SANGEETA MARINELLI JReason for Refusal: Refill Not AppropriateReason for Refusal Comment: changed to lipitor Electronically signed by Sangeeta Marinelli, [facility] at 07/02/2024 2:55 PM EDT documented in this encounter Plan of Treatment Upcoming Encounters Date Type Department Care Team (Late st Contact Info) Description 07/14/2024 6:00 PM EDT Anticoagulation Pharmacy, [facility] [place] [address] [place] [address] Pharmacist1, [facility] [address] [place] [address] 08/05/2024 11:00 AM EDT [facility] [address] [place] [phone] [place] [facility] [address] [place] [address] 08/12/2024 2:00 PM EDT Office Visit Hematology/Oncology [facility] [place] [address] [place] [phone] Kalin Demarco MD [address] [place] [address] 12/16/2024 3:00 PM EDT Office Visit Family Practice [facility] [place] [address] [place] [address] Rachelle Mo PA-C [address] [place] [address] 04/03/2025 3:00 PM EST Office Visit Cardiology, [facility] [address] [place] [phone] Dafne Navarro PA-C [address] [place] [address] Health Maintenance Due Date Last Done Comments [...] Not on filedocumented as of this encounter Visit Diagnoses Diagnosis Hyperlipemia, mixed Mixed hyperlipidemia documented in this encounter Advance Directives Documents on File Type Date Recorded Patient Tube Builder Expl anation Power of Cloud Infrastructure Architect 05/28/2024 signed on 01/03/2022 Care Teams Grain Shipper Relationship Specialty Start Date End Date Rachelle Mo PA-C [address] [facility] [place] [address] PCP - General Physician Senior Vice President And Chief Information Officer 07/17/23 documented as of this encounter
--- OUTSIDE RECORDS SUMMARY | 2024-07-08 07:45 | External Medical Summary | Summary of Care ---
Author Name Unknown Organization [facility] Address [address] [place] [address] Phone [phone] Care Team Providers Care Econometrician Name Role Phone Rachelle Mo PA-C Primary Care Provider [phone] Reason for Visit * Reason Onset Date Comments Advice 06/27/2024 Clearance for barrientos rgery Encounter Details Date Type Department Care Team (Late st Contact Info) Description 06/27/2024 Telephone Family Practice [facility] [place] [address] [place] [address] Rachelle Mo PA-C 200 [facility] [address] Advice (Clearance for surgery) Allergies Active Allergy Reactions Criticality Noted Date Comments [place] Extract Hives 12/14/2015 documented as of this encounter (statuses as of 07/04/2024) Medications Multiple Vitamins-Minera ls (CENTRUM SILVER ADULT [...] as of this encounter (statuses as of 07/04/2024) Active Problems Problem Noted Date Diagnosed Date [...] as of this encounter (statuses as of 07/04/2024) Resolved Problems Problem Noted Date Diagnosed Date Resolved Date Morbid obesity due to excess calories 11/08/2021 06/10/2024 Morbid obesity with BMI of 45.0-49.9, adult 07/05/2018 11/08/2021 Body mass index (BMI) of 40. 0 to 44.9 in adult 07/24/2017 07/05/2018 Overview: Per Obesity protocol #1 DVT (deep venous thrombosis) 01/08/2015 12/18/2016 Hip pain 11/12/2014 12/06/2016 documented as of this encounter (statuses as of 07/04/2024) Immunizations Name Administration Dates Next Due COVID-19 [...] encounter Miscellaneous Notes * Telephone Encounter - Brittani Marquez NA - 07/03/2024 6:50 PM EDT Faxed information back to [facility] Pre Admission Testing (PAT) Clinic. Successful confirmation received. * Telephone Encounter - Rachelle Mo PA-C - 07/03/2024 12:47 PM EDT With this additional information, the patient was anticoagulated to the desired range at the time of the blood draw. His history of chronic DVT/heterozygous Factor V Leiden conditions are the reasoning behind his anticoagulation therapy. Have no concerns at this time as far as the results of the time of the blood draw. * Telephone Encounter - Brittani Marquez NA - 07/03/2024 12:35 PM EDT Called patient to inquire. Patient reports he had been taking his Coumadin. States his last dose was 07/02/24. * Telephone Encounter - Rachelle Mo PA-C - 07/02/2024 6:38 PM EDT Did we get clarification if he was on Coumadin at the time? * Telephone Encounter - Brittani Marquez NA - 07/02/2024 10:35 AM EDT Attempted to call patient. Left message to return call. If patient returns calls, please inquire about June's message below. Fax received regarding from [facility] requesting June's review of the coag labs and wanting to be advised if patient is optimized for elective surgery or if further evaluation, testing or intervention will be needed prior to surgery. Fax placed in June's red to-do folder for review. Patient scheduled with cardiac studies today 07/02/24 as well. * Telephone Encounter - Rachelle Mo PA-C - 06/30/2024 2:02 PM EDT Please clarify with the patient that he was taking the Coumadin at the time of this blood draw. * Telephone Encounter - Gayle Dubon OSA - 06/27/2024 9:06 AM EDT Stormy Syed is requesting Rachelle review patients labs from 06/23/24 specifically the coags Pt procedure is scheduled on 07/08/24 Will need final clearance after review of labs FAX [phone] to fax clearance documented in this encounter Plan of Treatment Upcoming Encounters Date Type Department Care Team (Late st Contact Info) Description 07/14/2024 6:00 PM EDT [facility] [employer] [address] [place] [address] [address] Pharmacist1, [facility] [address] [place] [address] 08/05/2024 11:00 AM EDT [facility] [place] [address] [phone] [place] [facility] [address] [place] [address] 08/12/2024 2:00 PM EDT Office [facility] [place] [address] [place] [address] [phone] Kalin Demarco MD [facility] [place] [address] 12/16/2024 3:00 PM EDT Office Visit Family Practice [facility] 200 [facility] [place] [address] Rachelle Mo PA-C 200 [facility] [place] [address] 04/03/2025 3:00 PM EST Office Visit Cardiology, [facility] [address] [place] [phone] Dafne Navarro PA-C [address] [place] [place] [address] Health Maintenance Due Date Last Done Comments [...] Documents on File Type Date Recorded Patient Metallographer Expl anation Power of Textile Engineer 05/28/2024 signed on 01/03/2022 Care Teams Econometrician Relationship Specialty Start Date End Date Chely June Claudio, ZACKARY 200 [facility] [place] [address] PCP - General Physician Marketing Intern 07/17/23 documented as of this encounter
--- OUTSIDE RECORDS SUMMARY | 2024-07-08 07:45 | External Medical Summary | Summary of Care ---
Author Name Unknown Organization [facility] Address [address] [place] [address] Phone [phone] Care Team Providers Care Master Hearth Technician Name Role Phone Catherinepetar June Claudio RAYMUNDO Primary Care Provider [phone] Encounter Details Date Type Department Care Team (Late st Contact Info) Description 06/23/2024 Result Scan Unspecified Department <No scans attached> Allergies Active Allergy Reactions Criticality Noted Date Comments [place] Extract Hives 12/14/2015 documented as of this [...] Description 07/14/2024 6:00 PM EDT Anticoagulation Pharmacy, [place] [address] [place] [address] Pharmacist1, [facility] [address] [place] [address] 08/05/2024 11:00 AM EDT Laboratory Laboratory [facility] [address] [place] [phone] Alexi Bryson [facility] [address] [place] [address] 08/12/2024 2:00 PM EDT Office Visit Hematology/Oncology [facility] [address] [place] [phone] Kalin Demarco MD [address] [place] [address] 12/16/2024 3:00 PM EDT Office Visit Family Practice [facility] [place] [address] [place] [address] Rachelle Mo PA-C 200 [facility] [place] [address] 04/03/2025 3:00 PM EST Office Visit Cardiology, [facility] [address] [place] [phone] Dafne Navarro PA-C [address] [place] [address] [place] [address] Health Maintenance Due Date Last Done Comments Albumin/Creatinine Ratio 08/01/1963 Adult Wellness Visit 08/01/2011 COVID-19 Vaccine ( season) 2023 01/24/2021, 05/06/2020, 04/10/2020 Depression Monitoring 06/10/2025 06/10/2024 GFR 06/23/2025 06/23/2024, 04/2023, 08/07/2023, Additional history exists DTap/Tdap Vaccines [...] Procedure Name Priority Date/Time Associated Diagnosis Comments OUTSIDE LAB RESULTS 06/23/2024 documented in this encounter Results * OUTSIDE LAB RESULTS (06/23/2024) 06/23/2024 us No Physician Data Unknown LABORATORY Final Result documented in this encounter Advance Directives Documents on File Type Date Recorded Patient Registered Nurse Behavioral Health Expl anation Power of Internal Corrosion Specialist 05/28/2024 signed on 01/03/2022 Care Teams Master Hearth Technician Relationship Specialty Start Date End Date Chely Rachelle ZACKARY [place] [address] [place] [address] PCP - General Physician Chef De Froid 07/17/23 documented as of this encounter
--- OUTSIDE RECORDS SUMMARY | 2024-07-08 07:46 | External Medical Summary | Summary of Care ---
Author Name Unknown Organization [facility] Address [address] [place] [address] Phone [phone] Care Team Providers Care Supervisor Self Service Store Name Role Phone CatherineRachelle davey ZACKARY Primary Care Provider [phone] Reason for Referral * Precert (Diagnostic Medical) (Within 10 days (routine)) - Authorized Specialty Diagnoses / Procedures Referred By Contac t Referred To Contact Cardiac Studies Diagnoses Preoperative cardiovascular examination HTN, goal below 140/80 Procedures ECHO, STRESS (DOBUTAMINE) W/ PHYSICIAN Dafne Navarro PA-C [address] [place] [address] Phone: tel: fax: Referral ID Status Reason Start Date Expiration Date V isits Requested Visits Authorized [id number] Authorized Precert 07/02/2024 07/07/[phone] Reason for Visit * Reason Onset Date Comments Advice 06/27/2024 Pre op clearance Encounter Details Date Type Department Care Team (Late st Contact Info) Description 06/27/2024 Telephone Cristina Ellison [address] [place] [address] Dafne Navarro PA-C [address] [place] [place] [address] Advice (Pre op clearance) Allergies Active Allergy Reactions Criticality Noted Date Comments Jay Extract Hives 12/14/2015 documented as of this [...] Miscellaneous Notes * Telephone Encounter - Jasmin Pardo LPN - 07/02/2024 2:08 PM EDT See result note 07/02/24 * Telephone Encounter - Bharat Aldana OSA - 07/02/2024 2:00 PM EDT Patients DSE has been scheduled on: 07/02/2024 Status: Arrived Time: 10:35 AM Length: 70 Visit Type: DOBUTAMINE [[id number]] Reg Status: Verified Copay: $0.00 Provider: COLOR PASTE MIXER 1 GW * Telephone Encounter - Dafne Navarro PA-C - 07/01/2024 1:08 PM EDT I spoke with patient, he is asymptomatic, but minimally active, activity less than 4 METS. I recommend stress test preop. Discussed with patient who voices frustration as surgery is next week. Stateshe has to also care for with dementia. Explained we will try to scheduled as soon as possible,but if not surgery may be delayed. Please schedule dobutamine stress echo ABBY, if possible this week. * Telephone Encounter - Velvet Henson CMA - 06/30/2024 9:43 AM EDT Surgery details: L total hip arthroplasty with general anesthesia Surgeon: Dr. Acosta Location: [facility] Date: 07/10/24 Last office visit: 05/02/24 Please advise if patient can be cleared for procedure. * Telephone Encounter - Khadijah Jackson OSA - 06/30/2024 9:10 AM EDT Person calling: Maria Ines Relationship to patient: Fracisco Staples Phone/Fax to return call: [phone] ph and fax [phone] Reason for call(brief): cardiac clearance Pharmacy: na Provider Name:Dafne Navarro Detailed message to office:pt was seen on 05/02 by cardiology and needs clearance. Surgery is 07/08/24. Maria Ines states she doesn't know if patient can be cleared since he just saw cardiology in April or if he would need to be seen again * Telephone Encounter - Bharat Aldana OSA - 06/27/2024 3:04 PM EDT LM for Maria Ines to call back * Telephone Encounter - Katerine Yu OSA - 06/27/2024 9:05 AM EDT Person calling: Maria Ines Relationship to patient: Fracisco Staples Phone/Fax to return call: [phone] ph and fax [phone] Reason for call(brief): cardiac clearance Pharmacy: NA Provider Name: Dafne Navarro PA-C Detailed message to office: Maria Ines asking if pt needs to be seen for cardiac clearance - he had a visit on 06.10.24 with PCP - please advise - this is for an upcoming surgery documented in this encounter Plan of Treatment Upcoming Encounters Date Type Department Care Team (Late st Contact Info) Description 07/14/2024 6:00 PM EDT Anticoagulation Pharmacy, [facility] [address] [facility] [address] [place] [address] Pharmacist1, [facility] 200 [facility] [place] [address] 08/05/2024 11:00 AM EDT Laboratory Laboratory [facility] [address] [facility] [place] [phone] [facility] [address] [facility] [place] [address] 08/12/2024 2:00 PM EDT Office Visit Hematology/Oncology [facility] [address] [facility] [place] [phone] Kalin Demarco MD [address] [facility] [place] [address] 12/16/2024 3:00 PM EDT Office Visit Family Practice [facility] [address] [place] [address] Rachelle Mo PA-C 200 [facility] [place] [address] 04/03/2025 3:00 PM EST Office Visit Cardiology, [facility] [address] [place] [phone] Dafne Navarro PA-C [address] [place] [address] Health Maintenance Due Date Last Done Comments [...] Not on filedocumented as of this encounter Results * ECHO, STRESS (DOBUTAMINE) W/ PHYSICIAN (07/02/2024 11:55 AM EDT) LEFT VENTRICULAR EJECTION FRACTION 55 % [facility] 07/02/2024 10:3 4 AM EDT us Dafne Navarro PA-C ECHOCARDIOLOGY Final R esult [facility] CARDI[facility] documented in this encounter Visit Diagnoses Diagnosis Preoperative cardiovascular examination- Primary Pre-operative cardiovascular examination HTN, goal below 140/80 Unspecified essential hypertension documented in this encounter Advance Directives Documents on File Type Date Recorded Patient Cad Designer Drafter Expl anation Power of Brake Press Operator 05/28/2024 signed on 01/03/2022 Care Teams Supervisor Self Service Store Relationship Specialty Start Date End Date Rachelle Mo PA-C [address] [place] [address] PCP - General Physician Tile Layer 07/17/23 documented as of this encounter
--- OUTSIDE RECORDS SUMMARY | 2024-07-08 07:46 | External Medical Summary | Summary of Care ---
Author Name Unknown Organization [facility] Address [address] [place] [address] Phone [phone] Care Team Providers Care Brassiere Cup Mold Cutter Name Role Phone Rachelle Mo PA-C Primary Care Provider [phone] Encounter Details Date Type Department Care Team (Late st Contact Info) Description 06/26/2024 Orders Only Family Practice [facility] 200 [facility] [place] [address] Rachelle Mo PA-C 200 [facility] [place] [address] Allergies Active Allergy Reactions Criticality Noted Date Comments [place] Extract Hives 12/14/2015 documented as of this encounter (statuses as of 06/26/2024) Medications Multiple Vitamins-Minera ls (CENTRUM SILVER ADULT [...] as of this encounter (statuses as of 06/26/2024) Active Problems Problem Noted Date Diagnosed Date [...] as of this encounter (statuses as of 06/26/2024) Resolved Problems Problem Noted Date Diagnosed Date Resolved Date Morbid obesity due to excess calories 11/08/2021 06/10/2024 Morbid obesity with BMI of 45.0-49.9, adult 07/05/2018 11/08/2021 Body mass index (BMI) of 40. 0 to 44.9 in adult 07/24/2017 07/05/2018 Overview: Per Obesity protocol #1 DVT (deep venous thrombosis) 01/08/2015 12/18/2016 Hip pain 11/12/2014 12/06/2016 documented as of this encounter (statuses as of 06/26/2024) Immunizations Name Administration Dates Next Due COVID-19 [...] Description 07/14/2024 6:00 PM EDT Anticoagulation Pharmacy, [facility] [address] [place] [address] Pharmacist1, [facility] [address] [place] [address] 08/05/2024 11:00 AM EDT Laboratory Laboratory [facility] [place] [address] [place] [phone] Park, Lab [facility] [address] [place] [address] [address] 08/12/2024 2:00 PM EDT Office Visit Hematology/Oncology [facility] [place] [address] [place] [phone] Kalin Demarco MD 200 [facility] [place] [address] 12/16/2024 3:00 PM EDT Office Visit Family Practice [facility] [place] [address] [place] [address] Rachelle Mo PA-C 200 [facility] [place] [address] 04/03/2025 3:00 PM EST Office Visit Cardiology, [facility] [address] [place] [phone] Dafne Navarro PA-C [address] [place] [address] Health Maintenance Due Date Last Done Comments Albumin/Creatinine Ratio 08[birth year]01/1963 Adult Wellness Visit 08/01/2011 COVID-19 Vaccine ( season) 2023 01/24/2021, 05/06/2020, 04/10/2020 GFR 02/03/2025 06/23/2024, 12/04/2023, 08/07/2023, Additional history exists Depression Monitoring 06/10/2025 06/10/2024 DTap/Tdap Vaccines (3 - Td or Tdap) [...] Procedure Name Priority Date/Time Associated Diagnosis Comments CHEMISTRY-OUTSIDE Routine 06/23/2024 documented in this encounter Results * (ABNORMAL) CHEMISTRY-OUTSIDE (06/23/2024) Not all results display below - see scan for full detail OUTSIDE LAB (SEE SCANNED REPORT) Comment:SEE SCAN - CBCD, PTI NR BMP CRP CREATININE 0.82 0.6 - 1.4 MG/DL OUTSIDE LAB (SEE SCANNED REPORT) EGFR 89.91 ML/MIN OUTSIDE LA B (SEE SCANNED REPORT) POTASSIUM 4.1 3.5 - 5.1 MMOL/L OUTSIDE LAB (SEE SCANNED REPORT) GLUCOSE 123(A) 70 - 99 MG/DL OUTSIDE LAB (SEE SCANNED REPORT) HOURS FASTING OUTSID E LAB (SEE SCANNED REPORT) TRIGLYCERIDES-OUT SIDE LAB OUTSIDE LAB (SEE SCANNED REPORT) CHOLESTEROL-OUTSI DE LAB OUTSIDE LAB (SEE SCANNED REPORT) HDL-OUTSIDE LAB OUTS IRMA LAB (SEE SCANNED REPORT) CHOL/HDL RATIO-OUTSIDE LAB OUTSIDE LA B (SEE SCANNED REPORT) LDL (CALCULATED)-OUTS IRMA LAB OUTSIDE LAB (SEE SCANNED REPORT) LDL (DIRECT MEASURE)-OUTSIDE LAB OUTSIDE LAB (SEE SCANNED REPORT) HEMOGLOBIN, W0Z-[id number] LAB OUTSIDE LAB (SEE SCANNED REPORT) PHOSPHORUS-OUTSID E LAB OUTSIDE LAB (SEE SCANNED REPORT) PTH-OUTSIDE LAB OUTS IRMA LAB (SEE SCANNED REPORT) MICROALBUMIN RATIO-OUTSIDE LAB OUTSIDE LA B (SEE SCANNED REPORT) PROTEIN, UA-OUTSIDE LAB OUTSIDE LAB (SEE SCANNED REPORT) HGB 14.8 14.0 - 18.0 G/DL OUTSIDE LAB (SEE SCANNED REPORT) 06/23/2024 us Jovany Acosta MD LABORATORY Final Re sult OUTSIDE LAB (SEE SCANNED REPORT) documented in this encounter Advance Directives Documents on File Type Date Recorded Patient Special Education Assistant Expl anation Power of Feeder Operator Automatic 05/28/2024 signed on 01/03/2022 Care Teams Brassiere Cup Mold Cutter Relationship Specialty Start Date End Date Chely June ZACKARY [place] [address] [place] [address] PCP - General Physician Sea Kayaking Guide 07/17/23 documented as of this encounter
[2024-07-08] MEDS ORDERED: PHENYLEPHRINE HCL 10 MG/ML VIAL ONE (07:49)
[2024-07-08] MEDS ORDERED: ePHEDrine sulfate 50 MG/ML AMP IV PRN (07:52)
[2024-07-08] MEDS ORDERED: ONDANSETRON INJ 2 MG/ML 2 ML VIAL IV PRN ×2 (07:52→13:46)
[2024-07-08] MEDS ORDERED: ROCURONIUM BROMIDE 10 MG/ML 5 ML VIAL IV ONE (07:52)
[2024-07-08] MEDS ORDERED: ATROPINE SULFATE 0.1 MG/ML 10ML SYR IV PRN (07:52)
[2024-07-08] MEDS ORDERED: fentaNYL citrate PF 100 MCG/2 ML VIAL ONE (07:53)
[2024-07-08] MEDS ORDERED: ONDANSETRON INJ 2 MG/ML 2 ML VIAL ONE (07:54)
[2024-07-08] MEDS ORDERED: KETAMINE HCL 10MG/ML SYR ONE (07:57)
--- NOTE | 2024-07-08 08:36 | History & Physical Bridge Note ---
Date of Service July 08, 2024 History & Physical Bridge Note I have examined the patient, reviewed the History & Physical and in the interval since the performance of the History & Physical I have noted the following changes of clinical significance: no changes noted
[2024-07-08] MEDS: TRANEXAMIC ACID 1,000 MG **IV Pre-op IV SCH (08:52)
[2024-07-08] MEDS: ceFAZolin 3000MG 3,000 MG/72.5 ML BAG IV SCH (09:04)
[2024-07-08] MEDS ORDERED: HYDROmorphone INJ 2 MG/ML SYR/VIAL ONE (09:17)
[2024-07-08] MEDS ORDERED: SUGAMMADEX SODIUM 200 MG/2 ML VIAL IV ONE (09:48)
[2024-07-08] MEDS: BUPIVACAINE/EPINEPHRINE 0.5% MPF 1:200,000 30 ML VIAL ONE (09:50)
[2024-07-08] MEDS ORDERED: GLYCOPYRROLATE 0.2 MG/ML VIAL ONE (09:52)
--- NOTE | 2024-07-08 10:41 | Operative Report ---
PG Post Operative Report Pre & Post Diagnosis Operation Date: 07/08/24 08:50 Pre-Op Diagnosis: Left Hip Degenerative Joint Disease Post-Op Diagnosis: Left Hip Degenerative Joint Disease I identified the patient and participated in the time-out.: Yes Procedure Operation Date: 07/08/24 08:50 Actual Procedures p Left Total Hip Arthroplasty, Uncemented(Left) - Jovany Acosta MD Surgeon Jovany Acosta MD Electrician Chief Augustin Perry PA-C Estimated Blood Loss 100 Findings Consistent with Post-Op Diagnosis Specimens Left femoral head sent for pathology. Anesthesia Type General Complications none Disposition Accompanied Patient To Recovery: No Indications The patient is a 78-year-old gentleman with multiple medical comorbidities who is status post a right total hip replacement at [facility] about 20 years ago. Over the past several years he developed increased pain discomfort and stiffness in his left hip. X-rays show advanced hip arthritis. He has significant leg length inequality of at least a centimeter or so. Patient elected proceed with surgical management. He was medically optimized preoperatively. Description of Procedure Operative implants consist of: 1 Biomet G7 size 56 mm acetabular shell. 2. 6.5 cancellous acetabular screws 1 of 35 mm in length and 1 of 30 mm length. 3. Highly cross-linked polyethylene liner with 56 mm outer diameter, 40 mm inner diam with a jj placed inferior and posterior. 4. [place] hole cooler worker. 5. DePuy Karaya size 14 KLA femoral stem. 6. +12/40 mm ceramic articular ball. The patient was taken to the op room, identified, placed on the operating table in the supine position. All conductors were appropriately padded. IV antibiotics fibra anesthesia team. A general anesthetic was implemented as his INR was just slightly still elevated. The patient was then placed in the right lateral decubitus position. An axillary roll was placed. A stool Birkett position was used for positioning. The left hip and leg were then prepped and draped in usual sterile fashion. A posterior lateral approach to the left hip was then performed through a curvilinear incision centered over the greater trochanteric Sharp dissection Through subcutaneous tissue down to the IT band gluteal fascia. The IT band gluteal fascia incised longitudinally in line with skin incision. The underlying greater bursa was excised. The piriformis and external rotators along with the posterior joint capsule were then released from the posterior aspect the hip as a single layer. The hip was internally rotated and dislocated. The femoral neck osteotomy cut was made with Final Cut about 14 mm above the lesser trochanter. The femoral head was removed and sent for pathology. The femur was retracted anteriorly. Attention then drawn to the acetabulum. The acetabular labrum was excised. The pulmonary fat was excised. Sequential reaming the acetabular was then performed again with size of 49 progressing up to 55. I reamed a little bit with a 56 reamer and then placed a 56 mm Biomet G7 acetabular shell in about 40 degrees lateral opening and 20 degrees of anteversion. It was fixed with two 6.5 screws. Fairly large anterior inferior osteophyte was removed. Trial liner was placed. Attention drawn the femur. The proximal femur was entered with cookie-cutter followed by canal finder. I then broached begin with size 8 and progressing up to 14. Excellent fit at a 14. We trialed the hip. With the +5 articular ball the soft tissue tension was quite lax. We therefore elected to proceed to place a +12 articular ball. This recreated appropriate soft tissue tension and more equal leg lengths. As stated previously, he was quite short on the side compared to the opposite side. We did elect to place a jj inferior and posterior maximize his stability in flexion. All trial implants were removed. [place] hole cooler worker was placed. Highly cross- linked polyethylene liner was placed with a jj placed inferior and posterior. A size 14 KLA stem was impacted in position. A +12/40 mm ceramic articular ball was placed. Hip was located and once again found to be stable. Attention drawn toward closing. The wound was irrigated coconuts and pulsatile lavage solution. I did inject locally with 60 cc of half percent Marcaine with epinephrine. The posterior capsule and external rotators then repaired through drill holes in the posterior trochanter with #2 Tycron suture. The IT band gluteal fascia then closed in 1 PDS suture running fashion the subcutaneous tissues then closed in 2 layers the deep layer #1 Vicryl suture in the subcutaneous tissues with 2-0 Dexon suture in a buried interrupted fashion. Skin was closed with skin shelton. Leg was then cleaned and dried a sterile dressing with Xeroform, 4 fours, sterile ABD pad, foam tape was applied. The patient was then brought out of general anesthesia and transferred to the recovery room in stable condition. Patient tolerated procedure well and there were no complications. Augustin Perry, my physician office services assistant, was present for the entire procedure. His assistance was essential and required for appropriate patient positioning, prepping and draping, surgical exposure, performing the technical details of the operation, placement the implants, closure of the wound, and placement of the sterile bandage. I attest to the content of the Intraoperative Record and any orders documented therein. Any exceptions are noted below.
--- NOTE | 2024-07-08 10:51 | XRay Report ---
XR hip 1V LT w pelvis CLINICAL HISTORY: IN PACU - Post Surgical COMPARISON: None FINDINGS: Bilateral hip prostheses show no hardware complication. There is expected soft tissue gas and skin shelton on the left. IMPRESSION: Unremarkable postoperative exam ACT 112: Negative or not required by law. Electronically signed by: Rito Goodrich M.D. 07/08/2024 10:50 AM
[2024-07-08] MEDS: fentaNYL citrate PF 100 MCG/2 ML VIAL IV PRN (10:55)
--- NOTE | 2024-07-08 12:39 | Anesthesiology Progress Note ---
Date of Service July 08, 2024 Anesthesia Post Procedure Vital Signs Vital Signs: Temp Pulse Pulse Resp BP Pulse Ox O2 Del Method 07/08/24 12:15 59 L 16 140/76 93 Nasal Cannula 07/08/24 12:00 57 L 13 141/69 H 95 Nasal Cannula 07/08/24 11:45 50 L 12 130/66 95 Nasal Cannula 07/08/24 11:30 52 L 12 144/67 H 96 Nasal Cannula 07/08/24 11:20 36.5 C 58 L 16 147/75 H 95 Room Air 07/08/24 11:10 53 L 12 144/66 H 95 Oxymask 07/08/24 11:00 60 16 146/72 H 97 Oxymask 07/08/24 10:50 58 L 12 142/76 H 97 Oxymask 07/08/24 10:40 36.4 C L 60 16 129/70 95 Oxymask 07/08/24 07:18 36.6 C 55 L 20 155/93 H 96 Room Air O2 Flow Rate 07/08/24 12:15 2 07/08/24 12:00 2 07/08/24 11:45 2 07/08/24 11:30 2 07/08/24 11:20 07/08/24 11:10 2 07/08/24 11:00 4 07/08/24 10:50 4 07/08/24 10:40 6 07/08/24 07:18 Pain Intensity Left Hip: Pain Intensity: 4 Transfer of Care Handoff Completed per policy Notes Mental Status: alert / awake / arousable Patient Amnestic to Procedure: Yes Nausea / Vomiting: adequately controlled Pain: adequately controlled Airway Patency, RR, SpO2: stable & adequate BP & HR: stable & adequate Hydration State: stable & adequate Anesthetic Complications: no major complications apparent and Pt Satisfied with anesthetic care
[2024-07-08] MEDS ORDERED: ALUMINUM/MAGNESIUM SUSP 30 ML UDC PO PRN (13:46)
[2024-07-08] MEDS ORDERED: NALOXONE HCL 0.4 MG/1 ML VIAL/CARP IV PRN (13:46)
[2024-07-08] MEDS ORDERED: HYDROmorphone INJ 0.5 MG/0.5 ML SYR IV PRN (13:46)
[2024-07-08] MEDS ORDERED: METOCLOPRAMIDE HCL INJ 5 MG/ML 2 ML VIAL IV PRN (13:46)
[2024-07-08] MEDS ORDERED: MAGNESIUM HYDROXIDE SUSP 30 ML UDC PO PRN (13:46)
[2024-07-08] MEDS ORDERED: TAMSULOSIN HCL 0.4 MG CAP PO PRN (13:46)
[2024-07-08] MEDS ORDERED: traMADol HCL 50 MG TABLET PO PRN (13:46)
[2024-07-08] MEDS ORDERED: bisacodyL 10 MG SUPP PR PRN (13:46)
[2024-07-08] MEDS: KETOROLAC TROMETHAMINE 15 MG/ML VIAL IV SCH (14:31)
[2024-07-08] MEDS: SODIUM CHLORIDE 0.9% 1,000 ML IV SCH (14:32)
[2024-07-08] MEDS: TRANEXAMIC ACID / 0.7% NACL 1,000 MG/100 ML BAG IV SCH (16:52)
[2024-07-08] MEDS: ceFAZolin 2000MG 2,000 MG/15 ML SYR IV SCH (16:52)
[2024-07-08] MEDS: ASCORBIC ACID 500 MG TAB PO SCH (16:52)
[2024-07-08] MEDS: WARFARIN SOD 10 MG TAB PO ONE (17:40)
[2024-07-08] MEDS: SENNA 8.6 MG TAB PO SCH (21:52)
[2024-07-08] MEDS: QUEtiapine FUMARATE 25 MG TABLET PO SCH (21:52)
[2024-07-08] MEDS: DOCUSATE SODIUM 100 MG CAP PO SCH (21:52)
[2024-07-08] MEDS: PROPRANOLOL HCL 20 MG TAB PO SCH (21:54)
[2024-07-09 06:11] LABS: Basophils # (auto) 0.01 K/uL (0.00-0.20); Basophils % (auto) 0.1 %; Hematocrit (blood only) 41.1 % (42.0-52.0); Hemoglobin 14.1 g/dl (14.0-18.0); Immature Granulocytes # (auto) 0.06 K/uL (0.01-0.20); Immature Granulocytes % (auto) 0.5 %; Lymphocytes # (auto) 0.89 K/uL (1.20-3.40); Lymphocytes % (auto) 7.6 %; Mean Corpuscular Hemoglobin 31.8 pg (25.0-34.0); Mean Corpuscular Hgb Conc 34.3 g/dL (32.0-36.0); Mean Corpuscular Volume 92.6 fL (80.0-100.0); Mean Platelet Volume 10.2 fL (9.4-12.4); Monocytes # (auto) 0.98 K/uL (0.11-0.59); Monocytes % (auto) 8.3 %; Neutrophils % (auto) 83.5 %; Platelet Count 188 K/uL (130-400); RDW Coefficient of Variation 14.4 % (11.5-14.5); RDW Standard Deviation 49.1 fL (36.4-46.3); Red Blood Count 4.44 M/uL (4.70-6.10); White Blood Count 11.74 K/ul (4.8-10.8)
[2024-07-09 06:28] LABS: BUN Creatinine Ratio 19.6 (10-20); Calcium 8.5 mg/dl (8.6-10.3); Creatinine Clr Calc Pharmacy 81.8 ml/min; Potassium 4.1 mmol/L (3.5-5.1)
[2024-07-09 06:40] LABS: INR 1.3 (0.9-1.1); Prothrombin Time 13.7 Seconds (9.0-12.0)
[2024-07-09] MEDS: dexAMETHasone 10 MG in SYRINGE 0 ML IV SCH (07:46)
[2024-07-09] MEDS: CHOLECALCIFEROL 25 MCG (1000 UNITS) TAB PO SCH (08:32)
[2024-07-09] MEDS: MULTIVITAMIN TAB PO SCH (08:32)
[2024-07-09] MEDS: CALCIUM CARBONATE 1250MG TAB PO SCH (08:32)
[2024-07-09] MEDS: ATORVASTATIN 20 MG TAB PO SCH (08:32)
[2024-07-09] MEDS ORDERED: MULTIVITAMIN TAB PO SCH (09:00)
--- NOTE | 2024-07-09 11:14 | Orthopedic Progress Note ---
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 Some soreness and discomfort but nothing out of the ordinary. Hips located. He is neurologically intact. He is hoping to go to [facility] for a brief rehab stay. Plan: 1. DVT prophylaxis including thigh-high teds, SCDs, and back on Coumadin. He will get 10 mg today and then start back on 5 mg a day tomorrow. 2. PT/OT. Weight-bear as tolerated left shoulder protocol. 3. Pain control. Doing well with current pain regimen. 4. Disposition. He is hoping to go to a correction facility for a brief stay. social services coordinator looking into this. (2) Factor V deficiency: (3) Hx of gastroesophageal reflux (GERD): (4) Hypertension: (5) Hyperlipidemia: (6) Anxiety: Admission and Anticipated Discharge Date Admission Date: July 08, 2024 Subjective 78-year-old gentleman postop day 1 from left uncemented hip replacement. He is doing okay. A little bit hip soreness. The pain otherwise been pretty well- controlled. Denies any chest pain or shortness of breath. Not feeling dizzy or lightheaded. He is hoping to go to [facility] for a brief rehab stay. Physical Exam Physical Exam: Physical ghada is a pleasant elderly male. He is sitting up in his bedside chair. Examination of the hip and leg reveals the leg to be well aligned. Dressings clean dry and intact. Thigh is soft and supple. He is neurologically intact. Can dorsiflex and plantarflex his foot appropriately. Respiratory: normal respiratory effort, lungs clear to auscultation Cardiovascular: RRR, no murmur, no edema Gastrointestinal (Abdomen): normal bowel sounds, soft, nontender, no hepatosplenomegaly Results & Data Vital Signs (Past 12 Hours) Vital Signs Temp Pulse Pulse Resp BP Pulse Ox O2 Del Method 07/09/24 08:31 50 L 07/09/24 07:32 36.7 C 55 L 16 146/82 H 94 Room Air 07/09/24 02:35 36.9 C 51 L 18 127/72 93 Room Air Laboratory Results Hemoglobin is 14.1. Hematocrit is 41.1. INR is 1.3. Electrolytes are stable.
[2024-07-09] MEDS: WARFARIN SOD 10 MG TAB PO ONE (16:15)
[2024-07-10 06:58] LABS: INR 2.1 (0.9-1.1); Prothrombin Time 21.8 Seconds (9.0-12.0)
--- NOTE | 2024-07-10 07:12 | Orthopedic Progress Note ---
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 Hip is located. He is neurologically intact. His pain is controlled. He is hoping to go to [facility] today. Plan: 1. DVT prophylaxis including thigh-high teds, SCDs, and back on his Coumadin. Back on the normal dose today. 2. PT/OT. Weight-bear as tolerated. Left total hip protocol. 3. Pain control. Doing well with current pain regimen. 4. Disposition. Plan is to discharge to [facility]. I believe he has been accepted for today. He will follow-up in clinic in 2 to 3 weeks. (2) Anxiety: (3) HTN (hypertension): (4) Hx of gastroesophageal reflux (GERD): (5) Factor V deficiency: Admission and Anticipated Discharge Date Admission Date: July 08, 2024 Subjective 78-year-old gentleman now postop day 2 from a left uncemented hip replacement. He is doing pretty well. Some pain but very manageable. No chest pain or shortness of breath. Not feeling dizzy or lightheaded. Physical Exam Physical Exam: Physical exam shows a pleasant elderly male. He is lying in bed this morning looks quite comfortable. Examination of left hip and leg reveals the dressing be clean dry and intact. His thigh is soft and supple. Leg lengths are equal. He can dorsiflex and plantarflex his foot appropriately. He is neurologically intact. Results & Data Vital Signs (Past 12 Hours) Vital Signs Temp Pulse Resp BP Pulse Ox O2 Del Method 07/09/24 19:14 36.6 C 96 H 20 157/90 H 94 Room Air Laboratory Results INR is 2.1 this morning.
[2024-07-10] MEDS: WARFARIN SOD 5 MG TAB PO SCH (16:44)
[2024-07-11 06:41] LABS: INR 2.8 (0.9-1.1); Prothrombin Time 27.5 Seconds (9.0-12.0)
[2024-07-11 07:27] VITALS: BP 146/67; RESP 20; TEMP 97.7; O2SAT 96
--- NOTE | 2024-07-11 08:24 | Orthopedic Progress Note ---
Date of Service July 11, 2024 Assessment & Plan (1) Status post left hip replacement: Patient is postop day 3 from a left total hip arthroplasty by Dr. Acosta. - DVT prophylaxis including thigh-high JOS stockings, SCDs. He is back on his Coumadin. - PT/OT for weightbearing as tolerated as well as posterior hip precautions. - Pain control as per regimen - Discharge: Plan is to discharge to [facility]. - Follow-up with Dr. Acosta in 2 to 3 weeks. Subjective Operation Date: 07/08/24 08:50 Actual Procedures p Left Total Hip Arthroplasty, Uncemented(Left) - Jovany Acosta MD Nicholas is a 78-year-old male who is postop day 3 from a left total hip arthroplasty. He states he is doing well. He is awaiting placement at [facility]. He denies any questions or concerns regarding his left hip. Abduction pillow is in place. Review of Systems All systems reviewed & are unremarkable except as noted in HPI & below. Physical Exam General: Alert and oriented. No acute distress. Left hip: Dressing check satisfactory. Dressing is dry and intact. No saturation. States that he does have some numbness on the lateral aspect of the hip. Abduction pillow is in place. No edema in the left lower extremity. He has good motion of the left foot, ankle and knee. States she has been up and walking around. Neurovascularly intact in the left lower extremity. Results & Data Results & Data Laboratory Results . Diagnostic Findings . PG Care Time/CCT Total # of Minutes Spent Total Time Spent with Patient: Total time spent is greater than 50% in coordination of care (as documented) at patient's floor/unit and/or counseling patient: Coding Level of Care Code 40612 Post Operative Follow-Up Diagnoses Status post left hip replacement Z96.642
[2024-07-11 08:51] VITALS: PULSE 54
--- NOTE | 2024-07-15 11:48 | Discharge Summary ---
Date of Service July 15, 2024 Principal Diagnosis Same as "Discharge Diagnosis" noted below under Discharge Instructions. Discharge Exam General: Alert and oriented. No acute distress. Left hip: Dressing check satisfactory. Dressing is dry and intact. No saturation. States that he does have some numbness on the lateral aspect of the hip. Abduction pillow is in place. No edema in the left lower extremity. He has good motion of the left foot, ankle and knee. States she has been up and walking around. Neurovascularly intact in the left lower extremity. Discharge Data Procedures Performed Operation Date: 07/08/24 08:50 Actual Procedures p Left Total Hip Arthroplasty, Uncemented(Left) - Jovany Acosta MD Hospital Course (1) Status post left hip replacement: This is a 78 year old patient admitted on 07/08/24 and underwent total hip arthroplasty. He tolerated the procedure well and there were no complications. Transferred to the PACU post op and later to the orthopedic floor for further care. He was given ancef for antibiotic prophylaxis. He was also given JOS stockings, SCDs, and coumadin for DVT prophylaxis. Hemoglobin, hematocrit, and vital signs were monitored during his hospital stay and remained stable. Did not require any blood transfusions. There were no complications during his hospital stay. By post op day #3 the patient was tolerating a regular diet, pain was reasonably controlled with oral pain medicine, and he was participating in physical therapy. On post op day #3 the patient was discharged to assisted living. He was given printed discharge instructions including prescriptions for extra strength tylenol and tramadol. Continue physical therapy, weight bearing as tolerated. Continue JOS stockings. Follow up approximately 2 weeks post op or sooner if there are problems or concerns. PG Care Time/CCT Total # of Minutes Spent Total Time Spent with Patient: Total time spent is greater than 50% in coordination of care (as documented) at patient's floor/unit and/or counseling patient: Discharge Plan Discharge Items Patient Disposition: Transfer Long Term Fac Reason For Visit: Left Hip Osteoarthritis Discharge Diagnosis: Left Hip Replacement Activity: Per Instructions section Activity Comment: Follow/Obey hip precautions at all times. Weightbearing: Full weightbearing Weightbearing Comment: Weightbear as tolerated obeying hip precautions. Non-emergency contact: Surgeon Call non-emergency contact if: you have any medication questions Follow-up/Referrals: Rine,Rachelle A., PA-C [Primary Care Provider] - Diet: Regular Addtl Attending Provider Instructions: ACTIVITY RECOMMENDATIONS: Diet: * You may resume previous diet. Physical Therapy: * Aggressive physical therapy is not usually needed. You will learn to take care of yourself safely and walk. * Follow the "Hip Precautions Instructions." * In some cases, the executive secretary social welfare at the hospital will arrange to have a therapist come to your house for the first couple of weeks to help you learn these skills. * You need to practice on your own or with the help of a family member as needed. * When you learn these skills, most of the therapy can be done on your own. Home Exercise: * You were shown a series of exercises in the hospital. Do these exercises three to four times each day including the exercises you were shown in physical therapy. Walking: * Get up and walk several times each day. For the first four weeks, try not to stand or walk for more than one hour at a time. If you do stand or walk for more than one hour, you will not hurt anything, but your leg will likely swell. * As you feel comfortable, you may change from the walker or crutches to a cane and then to independent walking. MEDICATIONS: New Medicine: * You will likely be taking one or more of these medicines: 1. Tramadol - Take, as directed, when you need it, every six hours to control your pain. 2. Coumadin - Thins your blood to lessen the chance of forming a blood clot. * The most common side effects of pain medicine and iron are nausea and constipation. If nausea or constipation is too much of a problem or if you have any questions about your new medicines or doses, call [facility] at . We will try to help you manage these issues. "VERY IMPORTANT TO READ AND REVIEW" Pain: * The immediate post-operative period after hip replacement surgery is often quite painful. * You are given a prescription for pain medicine. You should take it, as directed, when you need it, especially before physical therapy and before going to bed. Pain that interferes with sleep is very common and can last several months. * You will likely need pain medicine for the first two to four weeks. It will not stop all of the pain. The pain will lessen and as you feel better, you may change to milder pain medicine such as Tylenol. * The most common side effects of pain medicine are nausea and constipation, so don't take more than you need. SPECIAL CARE INSTRUCTIONS: TEDs/Elastic Stockings: * The white elastic stockings help limit swelling and prevent blood clots from forming in your legs. The more you wear them, the more they work. * Wear them for six weeks. Incision Site Care: * Remove dressing postoperative day 2 and then shower. Keep direct shower pressure off the incision site. * After showering, cover shelton with dry gauze and change daily or more frequently if the dressing is getting saturated with drainage. * May completely stop using bandage if wound is dry and no drainage * Shelton are removed between 2 and 3 weeks post-op. If your follow-up appointment is made before 2 weeks, please have your appointment re- scheduled. It is too early to remove the shelton. Prevention of Infection: * Take antibiotics one hour before any dental cleaning, dental work, urological procedure, gastrointestinal procedure or any invasive surgery in order to prevent your new joint from getting infected. * You may get the antibiotics from the doctor performing the procedure or you may call our office at before and we will call in a prescription to the pharmacy of your choice. Things to Watch For: * Drainage from the incision site that occurs more than one week after your surgery. * Severely increased leg pain or swelling. * Increased redness at the incision site. * Fever above 102 degrees Fahrenheit. * Unusual chest pain or shortness of breath. * Unusual pain or burning with urination. Call [facility] at with any of the above problems or if you have any questions about your medicines or recovery. FOLLOW UP VISIT: Make an appointment to see your doctor for approximately two weeks after surgery for a progress check and staple removal by calling the office at . Pending Studies at Discharge: No Stand-Alone Forms: My [facility] Skilled Items Patient informed of condition?: Yes DNR: No Discharge Level of Care: Skilled Communicable Disease: No Discharge Prognosis: Improving Lines: None Urinary Catheter: No Medications and DC Order Prescriptions: New acetaminophen [Tylenol Extra Strength] 500 mg Tablet 1,000 mg PO Q8 30 Days Qty: 180 0RF Rx Instructions: Take 3 times per day to lessen pain. tramadol 50 mg Tablet 50 - 100 mg PO Q6H PRN (Reason: pain) Qty: 30 0RF Rx Instructions: Take as needed for Pain. Continued multivitamin Tablet 1 tab PO QAM Patient Comments: "when remembers" quetiapine [Seroquel] 25 mg Tablet 25 mg PO HS atorvastatin [Lipitor] 20 mg Tablet 20 mg PO QAM calcium carbonate [Calcium 600] 600 mg calcium (1,500 mg) Tablet 600 mg PO QAM warfarin 5 mg Tablet 5 mg PO HS propranolol 20 mg Tablet 20 mg PO BID acetaminophen 500 mg Capsule 1,000 mg PO Q6H PRN (Reason: Pain) cholecalciferol (vitamin D3) [Vitamin D3] 25 mcg (1,000 unit) Tablet 25 mcg PO DAILY Discharge Orders: Discharge Order (Routine); Ordered 07/11/24 Ordered By: Jovany Acosta Admission Data Admit Date/Time: 07/08/24 10:34 Attending Provider: Jovany Acosta Admit Provider: Jovany Acosta Primary Care Provider: Rachelle Mo Other Providers: Fred Mcclellan [place] Other Interventions: Discharge Summary Assessment (RN) Last Done: 07/11/24 08:50
== END 2024-07-11 10:53 | DRG 470 ==
LOC: ASU 06:45 → 3E 10:34 → INTOOBSV 10:34